=== PATIENT | female | born 1960 | race Caucasian/White ===

== ENCOUNTER 2019-04-14 15:30 | Inpatient (IN) ==
[2019-04-14] MEDS ORDERED: Naloxone 0.4 MG/ML INJ IVP PRN (18:40)
[2019-04-14] MEDS ORDERED: *HR* OxyCODONE Immed Rel 5 MG TABLET PO PRN (18:40)
[2019-04-14] MEDS ORDERED: *HR* HYDROcodone/Acet 5/325 mg TABLET PO PRN (18:40)
[2019-04-14] MEDS ORDERED: Isovue-370 500 ML BOTTLE IVP ONE (18:40)
[2019-04-14 19:20] LABS: Monocytes % 3.2 %; Nucleated Red Blood Cells 0.7 /100 WBC (0)
[2019-04-14 19:22] LABS: Basophils % 0.4 %; Eosinophils % 0.4 %; Hematocrit 37.1 % (35.3-44.9); Hemoglobin 11.8 g/dL (11.5-15.4); Immature Granulocytes % 2.1 % (0-4); Lymphocytes # 0.7 K/mcL (0.6-4.6); Lymphocytes % 6.4 %; Mean Corpuscular HGB Conc 31.8 g/dL (31.6-35.5); Mean Corpuscular Hemoglobin 40.4 pg (28.0-33.3); Mean Corpuscular Volume 127.1 fL (83.0-100.0); Mean Platelet Volume 10.4 fL (9.4-12.4); Monocytes # 0.3 K/mcL (0.0-1.3); Neutrophils # 9.2 K/mcL (1.6-8.9); Red Blood Count 2.92 M/mcL (3.82-4.97); Red Cell Distribution Width 14.5 % (11.5-14.5); Segmented Neutrophils % 87.5 %; White Blood Count 10.5 K/mcL (4.3-11.1)
[2019-04-14 19:23] LABS: INR 1.1; Prothrombin Time 12.7 Seconds (9.4-12.1)
[2019-04-14] MEDS: 0.9 % Sodium Chloride 1,000 ML IVC SCH (19:23)
[2019-04-14 19:24] LABS: Macrocytosis Present (Not Present); Platelet Count 74 K/mcL (140-400)
[2019-04-14] MEDS: Pantoprazole 40 MG in 0.9 % Sodium Chloride Mini Bag 100 ML IVC SCH ×2 (19:29→23:52)
[2019-04-14 19:41] LABS: Troponin I 0.03 ng/mL (< 0.04)
[2019-04-14 19:42] LABS: Alanine Aminotransferase 58 Units/L (7-52); Albumin 4.2 g/dL (3.5-5.7); Albumin/Globulin Ratio 1.4 (1.1-2.2); Alkaline Phosphatase 101 Units/L (34-104); Aspartate Amino Transferase 186 Units/L (13-39); BUN/Creatinine Ratio 13 (6-26); Bilirubin,Direct 0.9 mg/dL (0.0-0.2); Bilirubin,Indirect 0.8 mg/dL (0.0-1.0); Bilirubin,Total 1.7 mg/dL (0.3-1.0); Blood Urea Nitrogen 8 mg/dL (8-23); Calcium 7.4 mg/dL (8.6-10.3); Carbon Dioxide 5 mEq/L (23-29); Chloride 98 mEq/L (98-107); Globulin 3.1 g/dL (2.4-3.5); Glucose 216 mg/dL (70-105); Magnesium 1.2 mg/dL (1.6-2.6); Osmolality,Calculated 289 (280-300); Phosphorous 3.2 mg/dL (2.7-4.5); Potassium 4.7 mEq/L (3.5-5.1); Sodium 137 mEq/L (136-145); Total Protein 7.3 g/dL (6.4-8.9); eGFR For African Americans > 60 (> 60); eGFR For Non-African Americans > 60 (> 60)
[2019-04-14 20:17] LABS: ABG PCO2 < 13 mmHg (35-45); ABG PH 7.16 pH Units (7.32-7.45); ABG PO2 110 mmHg (85-104)
[2019-04-14] MEDS ORDERED: *HR* LORazepam 2 MG/ML VIAL IVP PRN (20:27)
[2019-04-14] MEDS: Piperacillin/Tazobactam 3.375 GM in 0.9 % Sodium Chloride Mini Bag 100 ML IVPB SCH (22:16)
[2019-04-14] MEDS: Thiamine (B-1) 100 MG, Folic Acid 1 MG, MVI, adult with vitamin K 10 ML in 0.9 % Sodi... IVPB SCH (22:17)
[2019-04-14] MEDS: *HR* Promethazine 25 MG/ML VIAL IVP PRN (23:51)
[2019-04-15] MEDS: 0.9 % Sodium Chloride 1,000 ML IVC SCH ×4 (02:27→23:46)
[2019-04-15] MEDS: *HR* LORazepam 2 MG/ML VIAL IVP PRN ×2 (02:29→21:59)
[2019-04-15 03:01] LABS: ABG PCO2 < 13 mmHg (35-45); ABG PH 7.19 pH Units (7.32-7.45); ABG PO2 83 mmHg (85-104)
[2019-04-15] MEDS ORDERED: Morphine Sulfate 2 MG/ML SYRINGE IVP ONE (03:26)
[2019-04-15 04:29] LABS: BUN/Creatinine Ratio 11 (6-26); Blood Urea Nitrogen 8 mg/dL (8-23); Calcium 6.9 mg/dL (8.6-10.3); Carbon Dioxide 5 mEq/L (23-29); Chloride 101 mEq/L (98-107); Glucose 254 mg/dL (70-105); Magnesium 1.2 mg/dL (1.6-2.6); Osmolality,Calculated 285 (280-300); Potassium 5.4 mEq/L (3.5-5.1); Sodium 134 mEq/L (136-145); eGFR For African Americans > 60 (> 60); eGFR For Non-African Americans > 60 (> 60)
[2019-04-15] MEDS ORDERED: Dextrose Gel 15 GM/37.5 ML TUBE PO PRN ×2 (04:43)
[2019-04-15] MEDS ORDERED: D5% in Water 1,000 ML IVC PRN (04:43)
[2019-04-15] MEDS ORDERED: *HR* Dextrose 50 % in Water (Syg) 50 ML SYRINGE IVP PRN ×2 (04:43→04:46)
[2019-04-15] MEDS ORDERED: Insulin DETEMIR 100 UNIT/ML X5UNITS SQ SCH (04:45)
[2019-04-15] MEDS ORDERED: Insulin LISPRO 300 UNITS/3 ML VIAL SQ SCH (04:45)
[2019-04-15] MEDS ORDERED: Insulin LISPRO 300 UNITS/3 ML VIAL SQ ONE (04:46)
[2019-04-15] MEDS ORDERED: D5% in 0.45% NACL 1,000 ML IVC PRN (04:46)
[2019-04-15] MEDS ORDERED: D5% in 0.45% NACL w KCl 20 MEQ/1,000 ML MLS IVC PRN (04:46)
[2019-04-15] MEDS ORDERED: Sodium Bicarbonate 50 MEQ/50 ML VIAL IVP ONE (04:50)
[2019-04-15] MEDS ORDERED: Insulin Human Regular 100 UNIT in 0.9 % Sodium Chloride 100 ML IVC SCH (05:00)
[2019-04-15] MEDS: Piperacillin/Tazobactam 3.375 GM in 0.9 % Sodium Chloride Mini Bag 100 ML IVPB SCH ×3 (05:04→20:38)
[2019-04-15] MEDS: Pantoprazole 40 MG in 0.9 % Sodium Chloride Mini Bag 100 ML IVC SCH ×2 (05:05→19:48)
[2019-04-15 06:27] LABS: VBG HCO3 10 mEq/L (21-27); VBG PCO2 27 mmHg (41-51); VBG PH 7.17 pH Units (7.32-7.42); VBG PO2 90 mmHg (25-50)
[2019-04-15 06:43] LABS: BUN/Creatinine Ratio 11 (6-26); Blood Urea Nitrogen 7 mg/dL (8-23); Calcium 6.8 mg/dL (8.6-10.3); Carbon Dioxide 9 mEq/L (23-29); Chloride 103 mEq/L (98-107); Glucose 223 mg/dL (70-105); Osmolality,Calculated 287 (280-300); Potassium 5.5 mEq/L (3.5-5.1); Sodium 136 mEq/L (136-145); eGFR For African Americans > 60 (> 60); eGFR For Non-African Americans > 60 (> 60)
[2019-04-15 06:48] LABS: Estimated Average Glucose 108 mg/dl
[2019-04-15] MEDS: 0.45 % Sodium Chloride w/KCl 20 MEQ/1,000 ML MLS IVC SCH ×9 (06:48→22:29)
[2019-04-15] MEDS ORDERED: Perflutren Lipid Microsphere 1.3 ML in 0.9 % Sodium Chloride 8.7 ML IVP ONE (07:15)
[2019-04-15] MEDS: Thiamine (B-1) 100 MG, Folic Acid 1 MG, MVI, adult with vitamin K 10 ML in 0.9 % Sodi... IVPB SCH (19:49)
[2019-04-15] MEDS ORDERED: Sennosides/Docusate Sodium TABLET PO PRN (20:30)
[2019-04-15] MEDS ORDERED: Simethicone 80 MG TAB.CHEW PO PRN (20:31)
[2019-04-15] MEDS: *HR* Promethazine 25 MG/ML VIAL IVP PRN (20:38)
[2019-04-15 23:07] LABS: VBG HCO3 20 mEq/L (21-27); VBG PCO2 32 mmHg (41-51); VBG PO2 125 mmHg (25-50)
[2019-04-15 23:23] LABS: Magnesium 1.3 mg/dL (1.6-2.6); Phosphorous < 1.0 mg/dL (2.7-4.5)
[2019-04-15] MEDS ORDERED: Dexmedetomidine HCl 400 MCG/100 ML MLS IVC ONE (23:34)
[2019-04-15] MEDS: Dexmedetomidine HCl 400 MCG/100 ML MLS IVC SCH (23:47)
[2019-04-16 00:54] LABS: Magnesium 1.8 mg/dL (1.6-2.6); Phosphorous < 1.0 mg/dL (2.7-4.5)
[2019-04-16 00:55] LABS: BUN/Creatinine Ratio 8 (6-26); Blood Urea Nitrogen 3 mg/dL (8-23); Calcium 6.3 mg/dL (8.6-10.3); Carbon Dioxide 21 mEq/L (23-29); Chloride 106 mEq/L (98-107); Glucose 95 mg/dL (70-105); Osmolality,Calculated 282 (280-300); Potassium 2.7 mEq/L (3.5-5.1); Sodium 138 mEq/L (136-145); eGFR For African Americans > 60 (> 60); eGFR For Non-African Americans > 60 (> 60)
[2019-04-16] MEDS ORDERED: Potassium Phosphate 44 MEQ in 0.9 % Sodium Chloride 250 ML IVPB ONE ×2 (00:56→10:50)
[2019-04-16] MEDS: Dexmedetomidine HCl 400 MCG/100 ML MLS IVC SCH ×5 (03:47→22:39)
[2019-04-16] MEDS: Piperacillin/Tazobactam 3.375 GM in 0.9 % Sodium Chloride Mini Bag 100 ML IVPB SCH (04:35)
[2019-04-16 04:44] LABS: BUN/Creatinine Ratio 10 (6-26); Blood Urea Nitrogen 6 mg/dL (8-23); Calcium 6.5 mg/dL (8.6-10.3); Carbon Dioxide 17 mEq/L (23-29); Chloride 104 mEq/L (98-107); Glucose 122 mg/dL (70-105); Magnesium 1.1 mg/dL (1.6-2.6); Osmolality,Calculated 287 (280-300); Phosphorous 1.1 mg/dL (2.7-4.5); Potassium 3.2 mEq/L (3.5-5.1); Sodium 139 mEq/L (136-145); eGFR For African Americans > 60 (> 60); eGFR For Non-African Americans > 60 (> 60)
[2019-04-16 04:52] LABS: BUN/Creatinine Ratio 10 (6-26); Blood Urea Nitrogen 5 mg/dL (8-23); Calcium 6.3 mg/dL (8.6-10.3); Carbon Dioxide 19 mEq/L (23-29); Chloride 106 mEq/L (98-107); Glucose 145 mg/dL (70-105); Magnesium 1.5 mg/dL (1.6-2.6); Osmolality,Calculated 286 (280-300); Phosphorous 1.1 mg/dL (2.7-4.5); Sodium 138 mEq/L (136-145); eGFR For African Americans > 60 (> 60); eGFR For Non-African Americans > 60 (> 60)
[2019-04-16 05:22] LABS: VBG HCO3 20 mEq/L (21-27); VBG PCO2 24 mmHg (41-51); VBG PH 7.53 pH Units (7.32-7.42); VBG PO2 180 mmHg (25-50)
[2019-04-16 05:28] LABS: BUN/Creatinine Ratio 9 (6-26); Blood Urea Nitrogen 3 mg/dL (8-23); Calcium 6.3 mg/dL (8.6-10.3); Carbon Dioxide 22 mEq/L (23-29); Chloride 103 mEq/L (98-107); Glucose 174 mg/dL (70-105); Osmolality,Calculated 287 (280-300); Sodium 138 mEq/L (136-145); eGFR For African Americans > 60 (> 60); eGFR For Non-African Americans > 60 (> 60)
[2019-04-16 05:30] LABS: Albumin 3.2 g/dL (3.5-5.7); Albumin/Globulin Ratio 1.5 (1.1-2.2); Bilirubin,Direct 0.4 mg/dL (0.0-0.2); Bilirubin,Indirect 0.9 mg/dL (0.0-1.0); Bilirubin,Total 1.3 mg/dL (0.3-1.0); Globulin 2.2 g/dL (2.4-3.5); Total Protein 5.4 g/dL (6.4-8.9)
[2019-04-16 05:53] LABS: Folate > 22.3 ng/mL (3.0-16.0)
[2019-04-16 05:56] LABS: Vitamin B12 550 pg/mL (250-1100)
[2019-04-16] MEDS: *HR* LORazepam 2 MG/ML VIAL IVP PRN ×3 (07:32→15:58)
[2019-04-16] MEDS ORDERED: Furosemide 20 MG/2 ML VIAL IVP ONE (09:26)
[2019-04-16 10:40] LABS: BUN/Creatinine Ratio 8 (6-26); Blood Urea Nitrogen 3 mg/dL (8-23); Calcium 6.7 mg/dL (8.6-10.3); Carbon Dioxide 22 mEq/L (23-29); Chloride 100 mEq/L (98-107); Glucose 211 mg/dL (70-105); Magnesium 2.3 mg/dL (1.6-2.6); Osmolality,Calculated 285 (280-300); Phosphorous 2.3 mg/dL (2.7-4.5); Potassium 3.5 mEq/L (3.5-5.1); Sodium 136 mEq/L (136-145); eGFR For African Americans > 60 (> 60); eGFR For Non-African Americans > 60 (> 60)
[2019-04-16 11:18] LABS: Eosinophils % 0.2 %; Hemoglobin 11.3 g/dL (11.5-15.4); Lymphocytes % 15.1 %; Mean Corpuscular HGB Conc 35.3 g/dL (31.6-35.5); Mean Corpuscular Hemoglobin 39.8 pg (28.0-33.3); Mean Corpuscular Volume 112.7 fL (83.0-100.0); Mean Platelet Volume 10.8 fL (9.4-12.4); Platelet Count 38 K/mcL (140-400); Red Blood Count 2.84 M/mcL (3.82-4.97); Red Cell Distribution Width 14.5 % (11.5-14.5); White Blood Count 4.4 K/mcL (4.3-11.1)
[2019-04-16 11:20] LABS: VBG Ionized Calcium 0.77 mmol/L (1.15-1.35)
[2019-04-16 11:20] LABS: Basophils % 0.2 %; Immature Granulocytes % 1.4 % (0-4); Immature Platelets 7.8 % (1.1-6.1); Lymphocytes # 0.7 K/mcL (0.6-4.6); Monocytes # 0.1 K/mcL (0.0-1.3); Monocytes % 2.1 %; Neutrophils # 3.5 K/mcL (1.6-8.9)
[2019-04-16 11:48] LABS: Macrocytosis Present (Not Present); Platelet Estimate Decreased (Normal)
[2019-04-16] MEDS ORDERED: Dextrose Gel 15 GM/37.5 ML TUBE PO PRN ×2 (12:00)
[2019-04-16] MEDS ORDERED: D5% in Water 1,000 ML IVC PRN (12:00)
[2019-04-16] MEDS ORDERED: *HR* Dextrose 50 % in Water (Syg) 50 ML SYRINGE IVP PRN (12:00)
[2019-04-16 12:28] LABS: Estimated Average Glucose 114 mg/dl
[2019-04-16 12:50] LABS: ABG Base Excess 6 mEq/L (-2 to 3); ABG HCO3 28 mEq/L (21-27); ABG Oxygen Saturation 98 % (95-98); ABG PCO2 31 mmHg (35-45); ABG PH 7.56 pH Units (7.32-7.45); ABG PO2 95 mmHg (85-104); ABG TCO2 29 mEq/L (20-26)
[2019-04-16] MEDS: Insulin LISPRO 300 UNITS/3 ML VIAL SQ SCH ×2 (13:11→18:16)
[2019-04-16] MEDS: Calcium Gluconate 1gm/50mL 1 GM/50 ML BAG IVPB SCH ×4 (13:11→23:39)
[2019-04-16] MEDS: Insulin DETEMIR 100 UNIT/ML X5UNITS SQ SCH ×2 (13:35→19:54)
[2019-04-16 16:24] LABS: Alanine Aminotransferase 35 Units/L (7-52); Albumin 3.5 g/dL (3.5-5.7); Albumin/Globulin Ratio 1.3 (1.1-2.2); Alkaline Phosphatase 79 Units/L (34-104); Aspartate Amino Transferase 89 Units/L (13-39); BUN/Creatinine Ratio 6 (6-26); Bilirubin,Total 1.5 mg/dL (0.3-1.0); Blood Urea Nitrogen 2 mg/dL (8-23); Calcium 7.3 mg/dL (8.6-10.3); Carbon Dioxide 25 mEq/L (23-29); Chloride 99 mEq/L (98-107); Globulin 2.7 g/dL (2.4-3.5); Glucose 109 mg/dL (70-105); Osmolality,Calculated 279 (280-300); Phosphorous 3.2 mg/dL (2.7-4.5); Potassium 3.2 mEq/L (3.5-5.1); Sodium 136 mEq/L (136-145); Total Protein 6.2 g/dL (6.4-8.9); eGFR For African Americans > 60 (> 60); eGFR For Non-African Americans > 60 (> 60)
[2019-04-16] MEDS ORDERED: THIAMINE IVPB SCH (18:00)
[2019-04-16] MEDS ORDERED: [UNRECOGNIZED DRUG - OTHER] IVPB SCH (18:00)
[2019-04-16] MEDS ORDERED: VITAMIN K IVPB SCH (18:00)
[2019-04-16] MEDS ORDERED: FOLIC ACID IVPB SCH (18:00)
[2019-04-16] MEDS ORDERED: D5 IVPB SCH (18:00)
[2019-04-16] MEDS ORDERED: MVI IVPB SCH (18:00)
[2019-04-16] MEDS: Thiamine (B-1) 100 MG, Folic Acid 1 MG, MVI, adult with vitamin K 10 ML in 0.9 % Sodi... IVPB SCH (18:17)
[2019-04-16 21:08] LABS: VBG Ionized Calcium 0.83 mmol/L (1.15-1.35)
[2019-04-17] MEDS: Insulin LISPRO 300 UNITS/3 ML VIAL SQ SCH ×5 (00:36→23:55)
[2019-04-17] MEDS: Dexmedetomidine HCl 400 MCG/100 ML MLS IVC SCH ×5 (03:11→23:36)
[2019-04-17 04:55] LABS: Hemoglobin 12.1 g/dL (11.5-15.4)
[2019-04-17 04:57] LABS: Basophils % 0.6 %; Eosinophils % 0.8 %; Hematocrit 33.5 % (35.3-44.9); Immature Granulocytes % 1.4 % (0-4); Immature Platelets 7.6 % (1.1-6.1); Lymphocytes % 28.4 %; Mean Corpuscular HGB Conc 36.1 g/dL (31.6-35.5); Mean Corpuscular Hemoglobin 39.5 pg (28.0-33.3); Mean Corpuscular Volume 109.5 fL (83.0-100.0); Mean Platelet Volume 10.8 fL (9.4-12.4); Monocytes # 0.1 K/mcL (0.0-1.3); Monocytes % 3.6 %; Neutrophils # 2.4 K/mcL (1.6-8.9); Nucleated Red Blood Cells 0.6 /100 WBC (0); Platelet Count 45 K/mcL (140-400); Red Blood Count 3.06 M/mcL (3.82-4.97); Red Cell Distribution Width 14.1 % (11.5-14.5); Segmented Neutrophils % 65.2 %; White Blood Count 3.6 K/mcL (4.3-11.1)
[2019-04-17 04:59] LABS: VBG Ionized Calcium 0.94 mmol/L (1.15-1.35)
[2019-04-17 05:14] LABS: Magnesium 1.6 mg/dL (1.6-2.6); Phosphorous 2.9 mg/dL (2.7-4.5)
[2019-04-17 05:15] LABS: Alanine Aminotransferase 36 Units/L (7-52); Albumin 3.4 g/dL (3.5-5.7); Albumin/Globulin Ratio 1.3 (1.1-2.2); Alkaline Phosphatase 76 Units/L (34-104); Aspartate Amino Transferase 96 Units/L (13-39); BUN/Creatinine Ratio 12 (6-26); Bilirubin,Total 1.6 mg/dL (0.3-1.0); Blood Urea Nitrogen 3 mg/dL (8-23); Calcium 7.9 mg/dL (8.6-10.3); Carbon Dioxide 25 mEq/L (23-29); Chloride 99 mEq/L (98-107); Globulin 2.6 g/dL (2.4-3.5); Glucose 115 mg/dL (70-105); Osmolality,Calculated 279 (280-300); Potassium 3.6 mEq/L (3.5-5.1); Sodium 136 mEq/L (136-145); eGFR For African Americans > 60 (> 60); eGFR For Non-African Americans > 60 (> 60)
[2019-04-17] MEDS ORDERED: Dexmedetomidine HCl 400 MCG/100 ML MLS IVC ONE (08:06)
[2019-04-17] MEDS: Pantoprazole 40 MG VIAL IVP SCH (08:09)
[2019-04-17] MEDS: Insulin DETEMIR 100 UNIT/ML X5UNITS SQ SCH ×2 (08:10→20:33)
[2019-04-17] MEDS: Piperacillin/Tazobactam 3.375 GM in 0.9 % Sodium Chloride Mini Bag 100 ML IVPB SCH (08:36)
[2019-04-17] MEDS: 0.45 % Sodium Chloride w/KCl 20 MEQ/1,000 ML MLS IVC SCH (08:36)
[2019-04-17] MEDS: Calcium Gluconate 1gm/50mL 1 GM/50 ML BAG IVPB SCH ×2 (08:41→09:46)
[2019-04-17] MEDS: *HR* LORazepam 2 MG/ML VIAL IVP PRN ×3 (10:01→21:22)
[2019-04-17] MEDS ORDERED: Ipratropium/Albuterol Neb 3 ML IH PRN (11:45)
[2019-04-17] MEDS: levoFLOXacin 750 MG/150 ML 750 MG/150 ML BAG IVPB SCH (12:20)
[2019-04-17 14:52] LABS: VBG Ionized Calcium 1.01 mmol/L (1.15-1.35)
[2019-04-17 15:07] LABS: Magnesium 1.9 mg/dL (1.6-2.6); Phosphorous 2.8 mg/dL (2.7-4.5); Potassium 3.4 mEq/L (3.5-5.1)
[2019-04-17] MEDS ORDERED: Potassium Chloride 40 MEQ, Lidocaine 1% 2 ML in 0.9 % Sodium Chloride 500 ML IVPB ONE (15:45)
[2019-04-17] MEDS ORDERED: Calcium Gluconate 1gm/50mL 1 GM/50 ML BAG IVPB ONE (15:48)
[2019-04-17] MEDS: Thiamine (B-1) 100 MG, Folic Acid 1 MG, MVI, adult with vitamin K 10 ML in 0.9 % Sodi... IVPB SCH (17:27)
[2019-04-18 04:44] LABS: VBG Ionized Calcium 1.04 mmol/L (1.15-1.35)
[2019-04-18 04:49] LABS: Basophils % 0.6 %; Eosinophils # 0.1 K/mcL (0.0-0.6); Eosinophils % 2.2 %; Hematocrit 33.6 % (35.3-44.9); Hemoglobin 11.5 g/dL (11.5-15.4); Immature Granulocytes % 1.2 % (0-4); Lymphocytes # 1.2 K/mcL (0.6-4.6); Lymphocytes % 37.5 %; Mean Corpuscular HGB Conc 34.2 g/dL (31.6-35.5); Mean Corpuscular Volume 113.9 fL (83.0-100.0); Mean Platelet Volume 11.2 fL (9.4-12.4); Monocytes # 0.3 K/mcL (0.0-1.3); Neutrophils # 1.6 K/mcL (1.6-8.9); Red Blood Count 2.95 M/mcL (3.82-4.97); Red Cell Distribution Width 14.1 % (11.5-14.5); Segmented Neutrophils % 50.5 %; White Blood Count 3.2 K/mcL (4.3-11.1)
[2019-04-18 04:58] LABS: Alanine Aminotransferase 31 Units/L (7-52); Albumin 3.2 g/dL (3.5-5.7); Albumin/Globulin Ratio 1.3 (1.1-2.2); Alkaline Phosphatase 69 Units/L (34-104); Aspartate Amino Transferase 78 Units/L (13-39); BUN/Creatinine Ratio 21 (6-26); Bilirubin,Total 1.7 mg/dL (0.3-1.0); Blood Urea Nitrogen 6 mg/dL (8-23); Calcium 8.1 mg/dL (8.6-10.3); Carbon Dioxide 20 mEq/L (23-29); Chloride 102 mEq/L (98-107); Globulin 2.5 g/dL (2.4-3.5); Glucose 121 mg/dL (70-105); Magnesium 1.4 mg/dL (1.6-2.6); Osmolality,Calculated 277 (280-300); Phosphorous 2.9 mg/dL (2.7-4.5); Potassium 3.5 mEq/L (3.5-5.1); Sodium 134 mEq/L (136-145); Total Protein 5.7 g/dL (6.4-8.9); eGFR For African Americans > 60 (> 60); eGFR For Non-African Americans > 60 (> 60)
[2019-04-18 05:25] LABS: Platelet Count 54 K/mcL (140-400)
[2019-04-18 05:26] LABS: Anisocytosis 1+ (Not Present); Platelet Estimate Decreased (Normal); Reactive Lymphocytes Present (Not Present)
[2019-04-18 05:27] LABS: Macrocytosis Present (Not Present)
[2019-04-18] MEDS: Insulin LISPRO 300 UNITS/3 ML VIAL SQ SCH ×4 (06:27→20:54)
[2019-04-18] MEDS ORDERED: Potassium Chloride 40 MEQ, Lidocaine 1% 2 ML in 0.9 % Sodium Chloride 500 ML IVPB ONE (06:47)
[2019-04-18] MEDS ORDERED: Calcium Gluconate 1gm/50mL 1 GM/50 ML BAG IVPB ONE (07:00)
[2019-04-18] MEDS: levoFLOXacin 750 MG/150 ML 750 MG/150 ML BAG IVPB SCH (07:49)
[2019-04-18] MEDS: Pantoprazole 40 MG VIAL IVP SCH (09:07)
[2019-04-18] MEDS: Insulin DETEMIR 100 UNIT/ML X5UNITS SQ SCH ×2 (09:07→20:47)
[2019-04-18] MEDS: Thiamine (B-1) 100 MG, Folic Acid 1 MG, MVI, adult with vitamin K 10 ML in 0.9 % Sodi... IVPB SCH (17:06)
[2019-04-18] MEDS: *HR* LORazepam 2 MG/ML VIAL IVP PRN (23:52)
[2019-04-19 04:10] LABS: Eosinophils % 0.6 %; Immature Granulocytes % 1.2 % (0-4)
[2019-04-19 04:11] LABS: VBG Ionized Calcium 1.06 mmol/L (1.15-1.35)
[2019-04-19 04:12] LABS: Basophils % 0.3 %; Hematocrit 30.4 % (35.3-44.9); Hemoglobin 10.6 g/dL (11.5-15.4); Immature Platelets 9.4 % (1.1-6.1); Lymphocytes % 30.9 %; Mean Corpuscular HGB Conc 34.9 g/dL (31.6-35.5); Mean Corpuscular Hemoglobin 38.7 pg (28.0-33.3); Mean Corpuscular Volume 110.9 fL (83.0-100.0); Mean Platelet Volume 11.1 fL (9.4-12.4); Monocytes # 0.5 K/mcL (0.0-1.3); Monocytes % 13.6 %; Neutrophils # 1.8 K/mcL (1.6-8.9); Red Blood Count 2.74 M/mcL (3.82-4.97); Red Cell Distribution Width 15.1 % (11.5-14.5); Segmented Neutrophils % 53.4 %; White Blood Count 3.4 K/mcL (4.3-11.1)
[2019-04-19 04:15] LABS: Lymphocytes # 1.1 K/mcL (0.6-4.6); Platelet Count 64 K/mcL (140-400)
[2019-04-19 04:29] LABS: Alanine Aminotransferase 29 Units/L (7-52); Albumin 3.2 g/dL (3.5-5.7); Albumin/Globulin Ratio 1.1 (1.1-2.2); Alkaline Phosphatase 69 Units/L (34-104); Aspartate Amino Transferase 63 Units/L (13-39); BUN/Creatinine Ratio 24 (6-26); Bilirubin,Total 1.6 mg/dL (0.3-1.0); Blood Urea Nitrogen 10 mg/dL (8-23); Calcium 8.2 mg/dL (8.6-10.3); Carbon Dioxide 20 mEq/L (23-29); Chloride 101 mEq/L (98-107); Globulin 2.8 g/dL (2.4-3.5); Glucose 115 mg/dL (70-105); Magnesium 1.5 mg/dL (1.6-2.6); Osmolality,Calculated 278 (280-300); Phosphorous 2.3 mg/dL (2.7-4.5); Potassium 3.3 mEq/L (3.5-5.1); Sodium 134 mEq/L (136-145); eGFR For African Americans > 60 (> 60); eGFR For Non-African Americans > 60 (> 60)
[2019-04-19 04:54] LABS: Anisocytosis 1+ (Not Present); Macrocytosis Present (Not Present)
[2019-04-19 04:55] LABS: Platelet Estimate Decreased (Normal)
[2019-04-19] MEDS ORDERED: Potassium Phosphate 44 MEQ in 0.9 % Sodium Chloride 250 ML IVPB ONE (06:59)
[2019-04-19] MEDS: Insulin LISPRO 300 UNITS/3 ML VIAL SQ SCH ×4 (07:19→20:02)
[2019-04-19] MEDS: Insulin DETEMIR 100 UNIT/ML X5UNITS SQ SCH ×2 (07:49→21:14)
[2019-04-19] MEDS: Pantoprazole 40 MG VIAL IVP SCH (07:49)
[2019-04-19] MEDS: levoFLOXacin 750 MG/150 ML 750 MG/150 ML BAG IVPB SCH (07:50)
[2019-04-19] MEDS: Calcium Gluconate 1gm/50mL 1 GM/50 ML BAG IVPB SCH ×2 (07:50→08:27)
[2019-04-19] MEDS ORDERED: *HR* Promethazine 25 MG/ML VIAL IVP PRN (10:09)
[2019-04-19] MEDS ORDERED: Simethicone 80 MG TAB.CHEW PO PRN (10:09)
[2019-04-19] MEDS ORDERED: *HR* Dextrose 50 % in Water (Syg) 50 ML SYRINGE IVP PRN (10:09)
[2019-04-19] MEDS ORDERED: Naloxone 0.4 MG/ML INJ IVP PRN (10:09)
[2019-04-19] MEDS ORDERED: *HR* HYDROcodone/Acet 5/325 mg TABLET PO PRN (10:09)
[2019-04-19] MEDS ORDERED: Ipratropium/Albuterol Neb 3 ML IH PRN (10:09)
[2019-04-19] MEDS ORDERED: Dextrose Gel 15 GM/37.5 ML TUBE PO PRN ×2 (10:09)
[2019-04-19] MEDS ORDERED: Sennosides/Docusate Sodium TABLET PO PRN (10:09)
[2019-04-19] MEDS ORDERED: *HR* LORazepam 2 MG/ML VIAL IVP PRN ×3 (10:09)
[2019-04-19] MEDS ORDERED: levoFLOXacin 750 MG/150 ML 750 MG/150 ML BAG IVPB SCH (11:00)
[2019-04-20] MEDS: Thiamine (B-1) 100 MG, Folic Acid 1 MG, MVI, adult with vitamin K 10 ML in 0.9 % Sodi... IVPB SCH ×2 (00:34→18:39)
[2019-04-20] MEDS: Insulin DETEMIR 100 UNIT/ML X5UNITS SQ SCH (09:58)
[2019-04-20] MEDS: Insulin LISPRO 300 UNITS/3 ML VIAL SQ SCH ×2 (09:58→11:38)
[2019-04-20] MEDS: levoFLOXacin 750 MG/150 ML 750 MG/150 ML BAG IVPB SCH (09:58)
[2019-04-21 04:30] LABS: Hemoglobin 9.3 g/dL (11.5-15.4); Mean Corpuscular Volume 112.9 fL (83.0-100.0); Mean Platelet Volume 11.3 fL (9.4-12.4)
[2019-04-21 04:32] LABS: Basophils % 0.4 %; Eosinophils # 0.1 K/mcL (0.0-0.6); Eosinophils % 3.9 %; Hematocrit 27.2 % (35.3-44.9); Immature Granulocytes % 1.3 % (0-4); Immature Platelets 8.1 % (1.1-6.1); Lymphocytes # 1.1 K/mcL (0.6-4.6); Lymphocytes % 46.9 %; Mean Corpuscular HGB Conc 34.2 g/dL (31.6-35.5); Mean Corpuscular Hemoglobin 38.6 pg (28.0-33.3); Monocytes # 0.5 K/mcL (0.0-1.3); Monocytes % 21.5 %; Neutrophils # 0.6 K/mcL (1.6-8.9); Red Blood Count 2.41 M/mcL (3.82-4.97); Red Cell Distribution Width 14.4 % (11.5-14.5); White Blood Count 2.3 K/mcL (4.3-11.1)
[2019-04-21 04:39] LABS: Platelet Count 84 K/mcL (140-400)
[2019-04-21 04:49] LABS: Alanine Aminotransferase 23 Units/L (7-52); Albumin 3.1 g/dL (3.5-5.7); Albumin/Globulin Ratio 1.3 (1.1-2.2); Alkaline Phosphatase 63 Units/L (34-104); Aspartate Amino Transferase 46 Units/L (13-39); BUN/Creatinine Ratio 21 (6-26); Bilirubin,Total 0.9 mg/dL (0.3-1.0); Blood Urea Nitrogen 8 mg/dL (8-23); Calcium 8.2 mg/dL (8.6-10.3); Carbon Dioxide 21 mEq/L (23-29); Chloride 105 mEq/L (98-107); Globulin 2.4 g/dL (2.4-3.5); Glucose 100 mg/dL (70-105); Osmolality,Calculated 280 (280-300); Sodium 136 mEq/L (136-145); Total Protein 5.5 g/dL (6.4-8.9); eGFR For African Americans > 60 (> 60); eGFR For Non-African Americans > 60 (> 60)
[2019-04-21 05:19] LABS: Platelet Estimate Decreased (Normal)
[2019-04-21] MEDS ORDERED: Acetaminophen 325 MG TABLET PO PRN (11:15)
[2019-04-21] MEDS ORDERED: traMADol 50 MG TABLET PO PRN (11:15)
[2019-04-21] MEDS: levoFLOXacin 750 MG/150 ML 750 MG/150 ML BAG IVPB SCH (16:42)
[2019-04-21] MEDS: Thiamine (B-1) 100 MG, Folic Acid 1 MG, MVI, adult with vitamin K 10 ML in 0.9 % Sodi... IVPB SCH (18:17)
[2019-04-22] MEDS ORDERED: *HR* Heparin 5,000 UNIT/ML VIAL IVP ONE (01:48)
[2019-04-22] MEDS ORDERED: *HR* Heparin 5,000 UNIT/ML VIAL IVP PRN ×2 (01:48)
[2019-04-22] MEDS ORDERED: Heparin 25,000 UNIT/250 ML D5W 25,000 UNIT/250 ML IV.SOLN IVC SCH (02:00)
[2019-04-22 03:19] LABS: Basophils % 0.4 %; Eosinophils # 0.1 K/mcL (0.0-0.6); Eosinophils % 2.6 %; Hematocrit 28.1 % (35.3-44.9); Hemoglobin 9.7 g/dL (11.5-15.4); Immature Granulocytes % 0.4 % (0-4); Lymphocytes # 1.1 K/mcL (0.6-4.6); Lymphocytes % 48.9 %; Mean Corpuscular HGB Conc 34.5 g/dL (31.6-35.5); Mean Corpuscular Hemoglobin 39.6 pg (28.0-33.3); Mean Corpuscular Volume 114.7 fL (83.0-100.0); Mean Platelet Volume 11.6 fL (9.4-12.4); Monocytes # 0.4 K/mcL (0.0-1.3); Monocytes % 18.9 %; Neutrophils # 0.7 K/mcL (1.6-8.9); Platelet Count 101 K/mcL (140-400); Red Blood Count 2.45 M/mcL (3.82-4.97); Red Cell Distribution Width 14.3 % (11.5-14.5); Segmented Neutrophils % 28.8 %; White Blood Count 2.3 K/mcL (4.3-11.1)
[2019-04-22 03:28] LABS: Heparin anti-factor XA UFH 0.03 IU/mL (0.30-0.70)
[2019-04-22 03:29] LABS: Prothrombin Time 11.8 Seconds (9.4-12.1)
[2019-04-22 03:57] LABS: Alanine Aminotransferase 27 Units/L (7-52); Albumin 3.3 g/dL (3.5-5.7); Albumin/Globulin Ratio 1.3 (1.1-2.2); Alkaline Phosphatase 67 Units/L (34-104); Aspartate Amino Transferase 53 Units/L (13-39); BUN/Creatinine Ratio 20 (6-26); Bilirubin,Total 0.8 mg/dL (0.3-1.0); Blood Urea Nitrogen 9 mg/dL (8-23); Calcium 8.5 mg/dL (8.6-10.3); Carbon Dioxide 21 mEq/L (23-29); Chloride 106 mEq/L (98-107); Globulin 2.6 g/dL (2.4-3.5); Glucose 101 mg/dL (70-105); Magnesium 1.3 mg/dL (1.6-2.6); Osmolality,Calculated 281 (280-300); Sodium 136 mEq/L (136-145); Total Protein 5.9 g/dL (6.4-8.9); eGFR For African Americans > 60 (> 60); eGFR For Non-African Americans > 60 (> 60)
[2019-04-22 04:10] LABS: Macrocytosis Present (Not Present); Platelet Estimate Decreased (Normal)
[2019-04-22] MEDS: levoFLOXacin 750 MG TABLET PO SCH (10:28)
[2019-04-22] MEDS: *HR* Enoxaparin 80 MG/0.8 ML SYRINGE SQ SCH ×2 (10:29→20:54)
[2019-04-22] MEDS: levoFLOXacin 750 MG/150 ML 750 MG/150 ML BAG IVPB SCH (11:14)
[2019-04-23] MEDS: levoFLOXacin 750 MG TABLET PO SCH (09:12)
[2019-04-23] MEDS: Thiamine (B-1) 100 MG TABLET PO SCH (09:12)
[2019-04-23] MEDS: Folic Acid 1 MG TABLET PO SCH (09:12)
[2019-04-23] MEDS: *HR* Enoxaparin 80 MG/0.8 ML SYRINGE SQ SCH ×2 (09:12→22:16)
[2019-04-24 05:51] LABS: Basophils % 1.1 %; Eosinophils # 0.1 K/mcL (0.0-0.6); Eosinophils % 1.8 %; Hematocrit 28.9 % (35.3-44.9); Hemoglobin 9.6 g/dL (11.5-15.4); Immature Granulocytes % 0.4 % (0-4); Lymphocytes # 1.6 K/mcL (0.6-4.6); Lymphocytes % 59.9 %; Mean Corpuscular HGB Conc 33.2 g/dL (31.6-35.5); Mean Corpuscular Hemoglobin 38.7 pg (28.0-33.3); Mean Corpuscular Volume 116.5 fL (83.0-100.0); Mean Platelet Volume 10.6 fL (9.4-12.4); Monocytes # 0.3 K/mcL (0.0-1.3); Monocytes % 11.4 %; Neutrophils # 0.7 K/mcL (1.6-8.9); Platelet Count 131 K/mcL (140-400); Red Blood Count 2.48 M/mcL (3.82-4.97); Red Cell Distribution Width 14.5 % (11.5-14.5); Segmented Neutrophils % 25.4 %; White Blood Count 2.7 K/mcL (4.3-11.1)
[2019-04-24 06:12] LABS: Alanine Aminotransferase 27 Units/L (7-52); Albumin 3.3 g/dL (3.5-5.7); Albumin/Globulin Ratio 1.3 (1.1-2.2); Alkaline Phosphatase 52 Units/L (34-104); Aspartate Amino Transferase 41 Units/L (13-39); BUN/Creatinine Ratio 24 (6-26); Bilirubin,Total 0.7 mg/dL (0.3-1.0); Blood Urea Nitrogen 9 mg/dL (8-23); Calcium 8.7 mg/dL (8.6-10.3); Carbon Dioxide 24 mEq/L (23-29); Chloride 106 mEq/L (98-107); Globulin 2.6 g/dL (2.4-3.5); Glucose 100 mg/dL (70-105); Magnesium 1.4 mg/dL (1.6-2.6); Osmolality,Calculated 293 (280-300); Sodium 142 mEq/L (136-145); Total Protein 5.9 g/dL (6.4-8.9); eGFR For African Americans > 60 (> 60); eGFR For Non-African Americans > 60 (> 60)
[2019-04-24 06:21] LABS: Macrocytosis Present (Not Present)
[2019-04-24 06:22] LABS: Platelet Estimate Normal (Normal)
[2019-04-24] MEDS: levoFLOXacin 750 MG TABLET PO SCH (09:05)
[2019-04-24] MEDS: Thiamine (B-1) 100 MG TABLET PO SCH (09:05)
[2019-04-24] MEDS: Folic Acid 1 MG TABLET PO SCH (09:05)
[2019-04-24] MEDS: *HR* Enoxaparin 80 MG/0.8 ML SYRINGE SQ SCH (09:17)
[2019-04-24] MEDS: Apixaban 5 MG TABLET PO SCH (21:05)
[2019-04-24] MEDS: Magnesium Oxide 400 MG TABLET PO SCH (21:06)
[2019-04-25] MEDS: Thiamine (B-1) 100 MG TABLET PO SCH (09:34)
[2019-04-25] MEDS: Magnesium Oxide 400 MG TABLET PO SCH (09:34)
[2019-04-25] MEDS: Apixaban 5 MG TABLET PO SCH (09:34)
[2019-04-25] MEDS: Folic Acid 1 MG TABLET PO SCH (09:35)
[2019-04-25] MEDS: levoFLOXacin 750 MG TABLET PO SCH (09:35)
[2019-04-25 12:13] VITALS: BP 101/69
[2019-05-01] MEDS ORDERED: Apixaban 5 MG TABLET PO SCH (21:00)
== END 2019-04-25 16:15 | DRG 720 ==
LOC: SUATTDRO 18:06 → ICNU 18:06 → 3BNU 04-19 11:07
PROVIDERS: ADMIT Pediatrics; ATTEND Internal Medicine